=== PATIENT | male | born 1990 | race Caucasian/White ===

== ENCOUNTER 2018-06-14 09:24 | Emergency (ER) | payer SELFPAY ==
[~2018-06-14] VITALS: Ht 175.3 cm; Wt 77.0 kg
[~2018-06-14 09:24] MED LIST: LACT1CAP11 PO
[2018-06-14 09:36] VITALS: BP 126/83
== END 2018-06-14 11:03 | disposition home or self-care (01) ==
LOC: ED 10:57
DX: K21.0 Gastro-esophageal reflux disease with esophagitis (principal); J00 Acute nasopharyngitis [common cold]; J20.9 Acute bronchitis, unspecified; J45.909 Unspecified asthma, uncomplicated
CPT/HCPCS: 71046; 93005; 99283

== ENCOUNTER 2018-06-20 17:52 | Emergency (ER) | payer SELFPAY ==
[~2018-06-20] VITALS: Ht 175.3 cm; Wt 76.7 kg
[2018-06-20] MEDS ORDERED: ASPIRIN 81 MG TABLET CHEW PO ONE (18:00)
[2018-06-20 18:22] LABS: BASOPHILS # (AUTO) 0.04 x10^3/uL (0-0.1); BASOPHILS % (AUTO) 1 % (0-1); EOSINOPHILS # (AUTO) 0.09 x10^3/uL (0-0.4); EOSINOPHILS % (AUTO) 1 % (1-7); LYMPHOCYTES % (AUTO) 29 % (22-44); MD NO; MEAN CORPUSCULAR HEMOGLOBIN 30.2 pg (27.5-34.5); MEAN CORPUSCULAR HGB CONC 34.4 g/dL (33.2-36.2); MEAN CORPUSCULAR VOLUME 87.8 fL (81-97); MEAN PLATELET VOLUME 10.6 fL (7.4-10.4); MONOCYTES # (AUTO) 0.51 x10^3/uL (0.2-0.8); MONOCYTES % (AUTO) 8 % (2-9); NEUTROPHILS # (AUTO) 4.13 x10^3/uL (1.8-6.8); NEUTROPHILS % (AUTO) 62 % (42-75); PLATELET COUNT 120 x10^3/uL (130-400); RED BLOOD COUNT 5.34 x10^6/uL (4.38-5.82); RED CELL DISTRIBUTION WIDTH 12.6 % (9.4-14.8)
[2018-06-20] MEDS ORDERED: ASPIRIN 81 MG TABLET CHEW ONE (18:28)
[2018-06-20 18:31] LABS: ALANINE AMINOTRANSFERASE 29 U/L (12-78); ALBUMIN 4.2 g/dL (3.4-5.0); ANION GAP 4 mmol/L (5-15); CALCIUM 8.8 mg/dL (8.5-10.1); CHLORIDE 108 mmol/L (98-107)
[2018-06-20 18:33] LABS: ALKALINE PHOSPHATASE 78 U/L (45-117); BILIRUBIN,TOTAL 0.5 mg/dL (0.2-1.0); CREATININE 1.13 mg/dL (0.7-1.3); TOTAL PROTEIN 7.5 g/dL (6.4-8.2)
--- NOTE | 2018-06-20 18:35 | NUR ---
PT LYING QUIETLY ON DARCY, GIRLFRIEND AT BS. PT C/O EPIGASTRIC AREA PAIN. STATES HE TOOK ANTIBIOTICS A WHILE AGO AND "MY SYSTEM HASN'T BEEN RIGHT SINCE". WILL CONFIRM ASA 162MG ORDER W/ DR VO.
--- NOTE | 2018-06-20 18:40 | NUR ---
TO XR PER DARCY
[2018-06-20] MEDS ORDERED: DICYCLOMINE 10 MG/ML, 2ML ONE (18:47)
[2018-06-20] MEDS ORDERED: ONDANSETRON ODT 8 MG ONE (18:48)
[2018-06-20] MEDS ORDERED: DICYCLOMINE 10 MG/ML, 2ML IM ONE (19:00)
[2018-06-20] MEDS ORDERED: ONDANSETRON ODT 8 MG PO ONE (19:00)
--- NOTE | 2018-06-20 20:23 | NUR ---
PT LYING QUIETLY ON GURNEY; REPORTS IMPROVMENT IN SX.
[2018-06-20 20:24] VITALS: BP 118/75
--- NOTE | 2018-06-20 21:30 | NUR ---
PT LYING QUIETLY ON GURNEY; GIRLFRIEND AT BEDSIDE. PT STILL UNABLE TO PRODUCE STOOL SPECIMEN. ERP WILL BE NOTIFIED.
--- NOTE | 2018-06-20 22:03 | NUR ---
PT REPORT TO JONI SORENSEN. PT CARE TRANSFERRED.
== END 2018-06-20 22:33 | disposition home or self-care (01) ==
LOC: ED 19:05
DX: R19.7 Diarrhea, unspecified (principal); R10.84 Generalized abdominal pain; K21.9 Gastro-esophageal reflux disease without esophagitis; J45.909 Unspecified asthma, uncomplicated; Z88.0 Allergy status to penicillin; Z88.2 Allergy status to sulfonamides; Z88.8 Allergy status to other drugs, medicaments and biological substances
CPT/HCPCS: 36415; 74021; 80053; 83690; 85025; 96372; 99284; J0500; Q0162